=== PATIENT | female | born 2005 ===

== ENCOUNTER 2025-09-05 15:08 | Day surgery (SDC) | payer BC, OTHER ==
[2025-09-05 15:44] VITALS: BMI 41.5
== END 2025-09-05 20:25 | disposition home or self-care (01) ==
LOC: CSHLD/OP 15:08 → CSHERS 15:08 → CSHLD/OP 20:25
PROVIDERS: ATTEND Family Medicine
DX: Z36.89 Encounter for other specified antenatal screening (principal); Z3A.35 35 weeks gestation of pregnancy; Z67.20 Type B blood, Rh positive; O24.414 Gestational diabetes mellitus in pregnancy, insulin controlled
CPT/HCPCS: 36416; 76819; 99283